=== PATIENT | male | born 1990 | race Caucasian/White ===

== ENCOUNTER 2016-12-29 09:22 | Emergency (ER) | payer MEDICAID, OTHER ==
[~2016-12-29] VITALS: Ht 172.7 cm; Wt 53.0 kg
[2016-12-29 09:23] VITALS: BP 128/75; PULSE 88; RESP 17; TEMP 98.4; O2SAT 99
[2016-12-29] MEDS ORDERED: ALBUAER3 INH (09:56)
[2016-12-29] MEDS ORDERED: PRED20 PO (09:56)
--- NOTE | 2016-12-29 09:57 | PD ---
HPI Chief Complaint: Cold / Flu Symptoms Time Seen by Provider: 09:31 Travel History International Travel<30 days: No Contact w/Intl Traveler<30days: No History of Present Illness HPI 26-year-old male well-nourished well-developed. The patient's had a runny nose cough fatigue hot and cold spells for 3 weeks. He is tried Sudafed which has not helped. Influenza study is negative. He occasionally has shortness of breath. He is reduced his smoking and a half a pack of cigarettes per day. He has no chest pain. He denies history of environmental allergies. Severity moderate. PFSH Past Medical History Cancer: No Diabetes: No Diminished Hearing: No Gastrointestinal Disorders: Yes (R HERNIA SURGERY ) Glaucoma: No Hepatitis: No Hypertension: No Neurologic: Yes (LEA JUNGE SYNDROME, SLEEP DISORDER, CLOSED HEAD INJURY) Immunizations Current: Yes Thyroid Disease: No ?: Not Past Surgical History Abdominal Surgery: Yes (RIGHT INGUINAL HERNIA REPAIR) Cardiac Surgery: No Ear Surgery: No Endocrine Surgery: No Eye Surgery: No Gynecologic Surgery: No Oral Surgery: No Pacemaker: No Thoracic Surgery: No Other Surgery: Yes (RIGHT HAND) Social History Alcohol Use: No Tobacco Use: Yes (1 PPD) Substance Use: No Allergies-Medications (Allergen,Severity, Reaction): Coded Allergies: Phenergan (Verified Allergy, Severe, "couldn't wake him up at urgent care, coma", 12/29/16) Reported Meds & Prescriptions Reported Meds & Active Scripts Active Claritin (Loratadine) 10 Mg Cap 10 Mg PO DAILY 21 Days [place] Nasal Homer (Sodium Chloride) 0.65% Homer 2 Homer EACH NARE DIRECTED PRN Azithromycin 250 Mg Tab 250 Mg PO DIRECTED Take 2 tabs (500 mg) on day 1 then 1 tab daily x 4 days. Prednisone 20 Mg Tab 40 Mg PO DAILY 4 Days Take 40 mg (2 tablets) daily for 5 days Proair Hfa 8.5 GM Inh (Albuterol Sulfate) 90 Mcg/Act Aer 2 Puff INH Q6H PRN 108 mcg/actuation Reported Buspirone (Buspirone HCl) Unknown Strength Tab Unknown Dose PO BID Review of Systems Except as stated in HPI: all other systems reviewed are Neg Respiratory: Positive: Cough, No: Wheezing Physical Exam Narrative GENERAL: 26-year-old male well-nourished well-developed SKIN: Focused skin assessment warm/dry. HEAD: Atraumatic. Normocephalic. EYES: Pupils equal and round. No scleral icterus. No injection or drainage. ENT: No nasal bleeding or discharge. Mucous membranes pink and moist. Trace erythema posterior oropharynx. No tonsillar hypertrophy or asymmetry. NECK: Trachea midline. No JVD. CARDIOVASCULAR: Regular rate and rhythm. No murmur appreciated. RESPIRATORY: No accessory muscle use. Clear to auscultation. Breath sounds equal bilaterally. GASTROINTESTINAL: Abdomen soft, non-tender, nondistended. Hepatic and splenic margins not palpable. MUSCULOSKELETAL: No obvious deformities. No clubbing. No cyanosis. No edema. NEUROLOGICAL: Awake and alert. No obvious cranial nerve deficits. Motor grossly within normal limits. Normal speech. PSYCHIATRIC: Appropriate mood and affect; insight and judgment normal. Data Data Last Documented VS Vital Signs Date Time Temp Pulse Resp B/P Pulse Ox O2 Delivery O2 Flow Rate FiO2 12/29/16 11:20 77 16 128/70 12/29/16 10:30 99 Room Air 12/29/16 09:23 98.4 Vital signs reviewed Orders Complete Blood Count With Diff (12/29/16 09:46) Basic Metabolic Panel (Bmp) (12/29/16 09:46) Iv Access Insert/Monitor (12/29/16 09:46) Ecg Monitoring (12/29/16 09:46) Oximetry (12/29/16 09:46) Oxygen Administration (12/29/16 09:46) Chest, Pa & Lat (12/29/16 09:46) Sodium Chloride 0.9% Flush (Ns Flush) (12/29/16 10:00) Albuterol Neb (Albuterol Neb) (12/29/16 10:00) Monoscreen (12/29/16 09:46) Labs Laboratory Tests Test 12/29/16 10:15 White Blood Count 10.3 TH/MM3 Red Blood Count 5.48 MIL/MM3 Hemoglobin 16.1 GM/DL Hematocrit 47.5 % Mean Corpuscular Volume 86.6 FL Mean Corpuscular Hemoglobin 29.4 PG Mean Corpuscular Hemoglobin 33.9 % Concent Red Cell Distribution Width 12.3 % Platelet Count 301 TH/MM3 Mean Platelet Volume 8.2 FL Neutrophils (%) (Auto) 70.1 % Lymphocytes (%) (Auto) 22.1 % Monocytes (%) (Auto) 6.0 % Eosinophils (%) (Auto) 0.9 % Basophils (%) (Auto) 0.9 % Neutrophils # (Auto) 7.2 TH/MM3 Lymphocytes # (Auto) 2.3 TH/MM3 Monocytes # (Auto) 0.6 TH/MM3 Eosinophils # (Auto) 0.1 TH/MM3 Basophils # (Auto) 0.1 TH/MM3 CBC Comment DIFF FINAL Differential Comment Sodium Level 144 MEQ/L Potassium Level 4.3 MEQ/L Chloride Level 104 MEQ/L Carbon Dioxide Level 28.5 MEQ/L Anion Gap 12 MEQ/L Blood Urea Nitrogen 13 MG/DL Creatinine 0.99 MG/DL Estimat Glomerular Filtration 93 ML/MIN Rate Random Glucose 94 MG/DL Calcium Level 9.4 MG/DL Monoscreen NEG MDM Medical Decision Making Medical Screen Exam Complete: Yes Emergency Medical Condition: Yes Medical Record Reviewed: Yes Differential Diagnosis Pneumonia, postnasal drip, bronchitis, cough variant asthma, mononucleosis Narrative Course CBC & BMP Diagram 12/29/16 10:15 Chest x-ray shows a lingular pneumonia Scripts as below The patient is resting comfortably and feels better, is alert and in no distress. The patients results and examination findings were discussed. The repeat examination is unremarkable and benign. The history, exam, diagnostic testing, and current condition do not suggest any significant pathology to warrant further testing, continued ED treatment, admission, or surgical evaluation at this point. The vital signs have been stable. The patient does not have uncontrollable pain, intractable vomiting, or other significant symptoms. The patient's condition is stable and appropriate for discharge. The patient will pursue further outpatient evaluation with a primary care physician or other designated or consulting physician as indicated in the discharge instructions. The patient expressed understanding and was agreeable with this plan. Diagnosis Primary Impression: Cough Additional Impression: Rhinorrhea Referrals: Joseph Ye MD 2 days Additional Instructions: You have a choice when it comes to health care, and we are glad that you chose [facility]. Hopefully, we have met your expectations on today's visit. You are welcome to return to [facility] at any time, as we are committed to meeting the health care needs of our community. Med/Other Pt SpecificInfo: Prescription(s) given Scripts Loratadine (Claritin)10 Mg Cap10 Mg PO DAILY 21 Days Ref 0 Prov:Gonzalo Acuña MD 12/29/16 Saline Nasal ([place] Nasal Homer)0.65% Spray2 Homer EACH NARE DIRECTED PRN ( NASAL CONGESTION) #1 BOTTLE Ref 0 Prov:Gonzalo Acuña MD 12/29/16 Azithromycin 250 Mg Eth159 Mg PO DIRECTED #6 TAB Ref 0 Take 2 tabs (500 mg) on day 1 then 1 tab daily x 4 days. Prov:Gonzalo Acuña MD 12/29/16 Prednisone 20 Mg Tab40 Mg PO DAILY 4 Days Ref 0 Take 40 mg (2 tablets) daily for 5 days Prov:Gonzalo Acuña MD 12/29/16 Albuterol 8.5 GM Inh (Proair Hfa 8.5 GM Inh)90 Mcg/Act Aer2 Puff INH Q6H PRN ( COUGH) #1 INHALER Ref 0 108 mcg/actuation Prov:Gonzalo Acuña MD 12/29/16 Disposition: 01 DISCHARGE HOME Condition: Stable Gonzalo Acuña MD Dec 29, 2016 09:57
[2016-12-29] MEDS ORDERED: RESP: ALBUTEROL 2.5 MG/3 ML NEB (SCH) INH ONE (10:00)
[2016-12-29] MEDS ORDERED: SODIUM CHLORIDE 0.9% FLUSH 10 ML FLUSH IVF PRN (10:00)
[2016-12-29 10:03] VITALS: RESP 16; O2SAT 99
[2016-12-29] MEDS ORDERED: BUSP5TAB PO (10:06)
[2016-12-29 10:30] VITALS: BP 128/73; PULSE 75; RESP 16; O2SAT 99
[2016-12-29 10:34] LABS: AUTOMATED NEUTROPHIL # 7.2 TH/MM3 (1.8-7.7); BASOPHIL # 0.1 TH/MM3 (0-0.2); BASOPHIL % 0.9 % (0.0-2.0); EOSINOPHIL # 0.1 TH/MM3 (0-0.4); EOSINOPHIL % 0.9 % (0.0-4.0); HEMATOCRIT 47.5 % (39.0-51.0); HEMO FLAGS DIFF FINAL; LYMPH % 22.1 % (9.0-44.0); LYMPHOCYTE # 2.3 TH/MM3 (1.0-4.8); MEAN CELL VOLUME 86.6 FL (80.0-100.0); MEAN CORPUSCULAR HEMOGLOBIN 29.4 PG (27.0-34.0); MEAN CORPUSCULAR HGB CONC 33.9 % (32.0-36.0); NEUT % 70.1 % (16.0-70.0); PLATELET COUNT 301 TH/MM3 (150-450); RED BLOOD COUNT 5.48 MIL/MM3 (4.50-5.90); RED CELL DISTRIBUTION WIDTH 12.3 % (11.6-17.2); WHITE BLOOD COUNT 10.3 TH/MM3 (4.0-11.0)
[2016-12-29 10:35] LABS: POTASSIUM 4.3 MEQ/L (3.5-5.1)
[2016-12-29 10:38] LABS: BICARBONATE 28.5 MEQ/L (21.0-32.0)
--- NOTE | 2016-12-29 10:38 | RADHPO ---
EXAM DATE/TIME: 12/29/2016 09:59 [facility] COMPARISON: CHEST PA & LAT, May 06, 2013, 11:12. INDICATIONS : Productive cough and congestion for three weeks. MEDICAL HISTORY : None. SURGICAL HISTORY : None. ENCOUNTER: Initial ACUITY: 3 weeks PAIN SCORE: 0/10 LOCATION: Bilateral chest FINDINGS: PA and lateral views of the chest. Minimal opacity in the anterior mid lung on the lateral view indic ating mild atelectasis versus consolidation in the right middle lobe or lingula. No correlate on the frontal view. The lungs are otherwise clear. Cardiomediastinal silhouette within normal limits. No ev idence of pleural effusion or pneumothorax. CONCLUSION: Mild consolidation versus atelectasis in the right middle lobe or lingula. Ayo Zapata MD on December 29, 2016 at 10:35 Board Certified Radiologist. This report was verified electronically.
[2016-12-29] MEDS ORDERED: AZIT250T3 PO (10:58)
[2016-12-29] MEDS ORDERED: OCEA0.653 EACH NARE (10:58)
[2016-12-29] MEDS ORDERED: CLAR10CA3 PO (10:59)
[2016-12-29 11:20] VITALS: BP 128/70
== END 2016-12-29 11:21 | disposition home or self-care (01) ==
LOC: PHED 09:22
DX: R05 Cough (principal); R09.89 Other specified symptoms and signs involving the circulatory and respiratory systems; F17.210 Nicotine dependence, cigarettes, uncomplicated
CPT/HCPCS: 71020; 80048; 85025; 86308; 94664; 99283; J7613

== ENCOUNTER 2017-07-29 09:17 | Emergency (ER) | payer OTHER ==
[~2017-07-29] VITALS: Ht 170.2 cm; Wt 59.5 kg
[~2017-07-29 09:17] MED LIST: ALBUAER3 INH; AZIT250T3 PO; BUSP5TAB PO; CLAR10CA3 PO; OCEA0.653 EACH NARE; PRED20 PO
[2017-07-29 09:21] VITALS: BP 140/70; PULSE 76; RESP 16; TEMP 98.3; O2SAT 99
[2017-07-29] MEDS ORDERED: TYLETAB34 PO (09:31)
--- NOTE | 2017-07-29 09:35 | PD ---
HPI Chief Complaint: Chest Pain Time Seen by Provider: 09:22 Travel History International Travel<30 days: No Contact w/Intl Traveler<30days: No Traveled to known affect area: No History of Present Illness HPI This patient complains of chest pain. Duration 2 days. Location is left upper chest. Severity is moderate. Worse with pressing on it or twisting his torso or moving his chest wall with a deep breath. He denies productive cough or fever or injury. Comes are nonexertional. No alleviating factors. PFSH Past Medical History Anxiety: Yes Depression: Yes Cancer: No Cardiovascular Problems: No Diabetes: No Diminished Hearing: No Gastrointestinal Disorders: Yes (R HERNIA SURGERY ) Glaucoma: No Hepatitis: No Hypertension: No Medical other: No Neurologic: Yes (LEA JUNGE SYNDROME, SLEEP DISORDER, CLOSED HEAD INJURY) Respiratory: No Immunizations Current: Yes Thyroid Disease: No Tetanus Vaccination: > 5 Years Influenza Vaccination: Yes Past Surgical History Abdominal Surgery: Yes (RIGHT INGUINAL HERNIA REPAIR) Cardiac Surgery: No Ear Surgery: No Endocrine Surgery: No Eye Surgery: No Genitourinary Surgery: Yes (SCROTAL LESION REMOVAL 09/2009) Gynecologic Surgery: No Oral Surgery: No Pacemaker: No Thoracic Surgery: No Other Surgery: Yes (RIGHT HAND, HYDROSELE) Social History Alcohol Use: No (denies) Tobacco Use: Yes (09/02-1 ppd) Substance Use: Yes (hx of "pot use") Allergies-Medications (Allergen,Severity, Reaction): Coded Allergies: promethazine (Unverified Allergy, Severe, "couldn't wake him up at urgent care,[facility]", 07/29/17) Reported Meds & Prescriptions Reported Meds & Active Scripts Active Tylenol-Codeine #3 (Acetaminophen-Codeine) 300-30 mg Tab 1 Tab PO Q6HR PRN Review of Systems General / Constitutional: No: Fever Eyes: No: Visual changes HENT: No: Headaches Cardiovascular: Positive: Chest Pain or Discomfort Respiratory: No: Shortness of Breath Gastrointestinal: No: Abdominal Pain Genitourinary: No: Dysuria Musculoskeletal: No: Pain Skin: No Rash Neurologic: No: Weakness Psychiatric: No: Depression Endocrine: No: Polydipsia Hematologic/Lymphatic: No: Easy Bruising Physical Exam Narrative GENERAL: Well-nourished, well-developed patient in no apparent distress. SKIN: Focused skin assessment reveals no rash and nodules. Skin is Warm and dry. HEAD: Atraumatic. Normocephalic. EYES: Pupils equal and round. No scleral icterus. No injection or drainage. ENT: No nasal bleeding or discharge. Mucous membranes pink and moist. NECK: Trachea midline. No JVD. CARDIOVASCULAR: Regular rate and rhythm. No murmur appreciated. RESPIRATORY: No accessory muscle use. Clear to auscultation. Breath sounds equal bilaterally. GASTROINTESTINAL: Abdomen soft, non-tender, nondistended. Hepatic and splenic margins not palpable. MUSCULOSKELETAL: No obvious deformities. No clubbing. No cyanosis. No edema. Has readily reproducible chest wall tenderness in the left upper chest. NEUROLOGICAL: Awake and alert. No obvious cranial nerve deficits. Motor grossly within normal limits. Normal speech. PSYCHIATRIC: Appropriate mood and affect; insight and judgment normal. Data Data Last Documented VS Vital Signs Date Time Temp Pulse Resp B/P (MAP) Pulse Ox O2 Delivery O2 Flow Rate FiO2 07/29/17 09:25 (93) 07/29/17 09:21 Room Air 07/29/17 09:21 98.3 76 16 99 Orders Orders Chest, Single Ap (07/29/17 ) Electrocardiogram (07/29/17 ) MDM Medical Decision Making Medical Screen Exam Complete: Yes Emergency Medical Condition: Yes Medical Record Reviewed: Yes Differential Diagnosis Differential diagnosis includes HI, angina, pericarditis, pleurisy, GERD, costochondritis Narrative Course I have reviewed the patient's electronic medical record. Patient was seen here last year for respiratory infection. Fairly frequent visitor over the years for minor complaints I reviewed his EKG which is normal I reviewed his chest x-ray which is normal Patient has clear-cut readily reproducible left upper chest wall tenderness. This is clearly musculoskeletal. Will not require further cardiac evaluation.The patient was advised to follow up with their physician and return if they worsen.The patient was warned about potential sedation for the medications they will receive on prescription. Diagnosis Primary Impression: Musculoskeletal chest pain Additional Instructions: The patient was advised to follow up with their physician and return if they worsen. The patient was warned about potential sedation for the medications they will receive on prescription. Med/Other Pt SpecificInfo: Prescription(s) given Scripts Acetaminophen-Codeine (Tylenol-Codeine #3) 300-30 mg Tab 1 TAB PO Q6HR Y for PAIN, #20 TAB 0 Refills Prov: Alexis Rosas MD 07/29/17 Disposition: 01 DISCHARGE HOME Condition: Stable Alexis Rosas MD Jul 29, 2017 09:35
--- NOTE | 2017-07-29 09:56 | RADRPT ---
EXAM DATE/TIME: 07/29/2017 09:45 [facility] COMPARISON: CHEST PA & LAT, December 29, 2016, 9:59. INDICATIONS : Left side chest pain. MEDICAL HISTORY : None. SURGICAL HISTORY : None. ENCOUNTER: Initial ACUITY: 3 days PAIN SCORE: 10/10 LOCATION: Left chest FINDINGS: A single view of the chest demonstrates the lungs to be symmetrically aerated without evidence of mas s, infiltrate or effusion. The cardiomediastinal contours are unremarkable. Osseous structures are intact. CONCLUSION: No acute disease. Jarek Burgos MD on July 29, 2017 at 9:53 Board Certified Radiologist. This report was verified electronically.
--- NOTE | 2017-07-29 15:16 | EKG ---
Date Performed: 07/29/2017 Time Performed: 09:18:36 PTAGE: 27 years EKG: Sinus rhythm NORMAL ECG NO PREVIOUS TRACING DOCTOR: Saray Jauregui Interpretating Date/Time 07/29/2017 15:13:33
== END 2017-07-29 10:21 | disposition home or self-care (01) ==
LOC: PHED 09:17
DX: R07.89 Other chest pain (principal); F32.9 Major depressive disorder, single episode, unspecified; F17.210 Nicotine dependence, cigarettes, uncomplicated
CPT/HCPCS: 71010; 93005; 99284

== ENCOUNTER 2017-09-02 17:12 | Emergency (ER) | payer OTHER ==
[~2017-09-02] VITALS: Ht 170.2 cm; Wt 61.0 kg
[~2017-09-02 17:12] MED LIST changes: -ALBUAER3 INH; -AZIT250T3 PO; -BUSP5TAB PO; -CLAR10CA3 PO; -OCEA0.653 EACH NARE; -PRED20 PO; +TYLETAB34 PO
[2017-09-02 17:31] VITALS: BP 118/69; PULSE 111; RESP 16; TEMP 102.5; O2SAT 98
[2017-09-02] MEDS ORDERED: ACETAMINOPHEN 325 MG TAB PO ONE (18:15)
--- NOTE | 2017-09-02 18:41 | PD ---
HPI . Cold/flu symptoms Chief Complaint: Cold / Flu Symptoms Time Seen by Provider: 18:03 Travel History International Travel<30 days: No Contact w/Intl Traveler<30days: No Traveled to known affect area: No History of Present Illness HPI 27 yo M who comes to ER complaining of acute onset sore throat, headache, weakness and chills that started this am. He slept from 10am until 4pm after which he presented here due to continued symptoms. He was unable to take his temperature at home. He reports a coworker has been out of work for the last few days after being diagnosed with strep throat. No relieving or exacerbating factors. He rates his myalgias at 10/10. PFSH Past Medical History Anxiety: Yes Depression: Yes Cancer: No Cardiovascular Problems: No Diabetes: No Diminished Hearing: No Gastrointestinal Disorders: Yes (R HERNIA SURGERY ) Glaucoma: No Hepatitis: No Hypertension: No Neurologic: Yes (LEA JUNGE SYNDROME, SLEEP DISORDER, CLOSED HEAD INJURY) Respiratory: No Immunizations Current: Yes Thyroid Disease: No ?: Not Past Surgical History Abdominal Surgery: Yes (RIGHT INGUINAL HERNIA REPAIR) Cardiac Surgery: No Ear Surgery: No Endocrine Surgery: No Eye Surgery: No Genitourinary Surgery: Yes (SCROTAL LESION REMOVAL 09/2009) Gynecologic Surgery: No Oral Surgery: No Pacemaker: No Thoracic Surgery: No Other Surgery: Yes (RIGHT HAND, HYDROSELE) Social History Alcohol Use: Yes (occ) Tobacco Use: Yes (09/02- ppd) Substance Use: Yes (hx of "pot use") Allergies-Medications (Allergen,Severity, Reaction): Coded Allergies: promethazine (Unverified Allergy, Severe, "couldn't wake him up at urgent care[facility]", 09/02/17) Reported Meds & Prescriptions Reported Meds & Active Scripts Active Ibuprofen 800 Mg Tab 800 Mg PO Q8H PRN Amoxicillin 875 Mg Tab 875 Mg PO BID 7 Days Tylenol-Codeine #3 (Acetaminophen-Codeine) 300-30 mg Tab 1 Tab PO Q6HR PRN Review of Systems Except as stated in HPI: all other systems reviewed are Neg General / Constitutional: Positive: Fever, Chills HENT: Positive: Headaches, Sore Throat, Congestion Physical Exam Narrative General: fatigued-looking young male curled up and shivering under sheet HEENT: atraumatic, ANGÉLICA, tympanic membranes without effusion, erythematous posterior throat Lungs: Clear to auscultation Heart: Sinus tach. Skin: no signs of bruising or discoloration Musculoskeletal: 5/5 strength in all extremities Neuro: nonfocal Psych: normal mood and affect Data Data Last Documented VS Vital Signs Date Time Temp Pulse Resp B/P (MAP) Pulse Ox O2 Delivery O2 Flow Rate FiO2 09/02/17 17:31 102.5 111 16 118/69 (85) 98 Orders Orders Acetaminophen (Tylenol) (09/02/17 18:15) Influenzae A/B Antigen (09/02/17 18:03) Group A Rapid Strep Screen (09/02/17 18:19) Strep Culture (Group A) (09/02/17 18:33) Ed Discharge Order (09/02/17 18:48) MDM Medical Decision Making Medical Screen Exam Complete: Yes Emergency Medical Condition: Yes Differential Diagnosis Differential diagnosis of sore throat includes but is not limited to viral illness, strep throat, mononucleosis, retropharyngeal abscess, peritonsillar abscess Narrative Course Patient presents with sore throat and fever. He has had a positive exposure to strep throat. He will be treated with amoxicillin. Flu screen is negative. Strep screen is negative. Diagnosis Primary Impression: Pharyngitis Qualified Codes: J02.9 - Acute pharyngitis, unspecified Patient Instructions: General Instructions, Pharyngitis (DC) Med/Other Pt SpecificInfo: Prescription(s) given Scripts Ibuprofen (Ibuprofen) 800 Mg Tab 800 MG PO Q8H Y for Pain/Inflammation, #60 TAB 0 Refills Prov: Sofie Barkley MD 09/02/17 Amoxicillin (Amoxicillin) 875 Mg Tab 875 MG PO BID for Infection for 7 Days, #14 TAB 0 Refills Prov: Sofie Barkley MD 09/02/17 Disposition: 01 DISCHARGE HOME Condition: Stable Sofie Barkley MD Sep 02, 2017 18:41
[2017-09-02] MEDS ORDERED: IBUP1TAB7 PO (18:47)
[2017-09-02] MEDS ORDERED: AMOX875T PO (18:47)
[2017-09-02 18:57] VITALS: BP 140/74; TEMP 100.9
== END 2017-09-02 19:08 | disposition home or self-care (01) ==
LOC: PHED 17:12
DX: J02.9 Acute pharyngitis, unspecified (principal); M79.1 Myalgia; F17.210 Nicotine dependence, cigarettes, uncomplicated
CPT/HCPCS: 87081; 87804; 87880; 99283

== ENCOUNTER 2017-09-04 08:01 | Emergency (ER) | payer OTHER ==
[~2017-09-04] VITALS: Ht 170.2 cm; Wt 59.0 kg
[~2017-09-04 08:01] MED LIST changes: +AMOX875T PO; +IBUP1TAB7 PO
[2017-09-04 08:05] VITALS: BP 134/63; PULSE 97; RESP 16; TEMP 98.9; O2SAT 99
[2017-09-04 08:10] VITALS: BP 134/63; PULSE 97; RESP 16; TEMP 98.9; O2SAT 99
--- NOTE | 2017-09-04 08:23 | PD ---
HPI Chief Complaint: ENT Complaint Time Seen by Provider: 08:07 Travel History International Travel<30 days: No Contact w/Intl Traveler<30days: No Traveled to known affect area: No History of Present Illness HPI This 27-year-old male is complaining of sore throat. He was here 2 days ago with that complaint. He had been exposed to strep at work. He had a negative test for influenza and a negative strep screen. Apparently the strep culture however was growing question of some beta colonies. The patient was started on amoxicillin 2 days ago area and he says the pain has not improved in fact seems to be worse. He has trouble swallowing. Day he noted that he had white spots in the back of his throat. PFSH Past Medical History Anxiety: Yes Depression: Yes Cancer: No Cardiovascular Problems: No Diabetes: No Diminished Hearing: No Gastrointestinal Disorders: Yes (R HERNIA SURGERY ) Glaucoma: No Hepatitis: No Hypertension: No Neurologic: Yes (LEA JUNGE SYNDROME, SLEEP DISORDER, CLOSED HEAD INJURY) Respiratory: No Immunizations Current: Yes Thyroid Disease: No Past Surgical History Abdominal Surgery: Yes (RIGHT INGUINAL HERNIA REPAIR) Cardiac Surgery: No Ear Surgery: No Endocrine Surgery: No Eye Surgery: No Genitourinary Surgery: Yes (SCROTAL LESION REMOVAL 09/2009) Gynecologic Surgery: No Oral Surgery: No Pacemaker: No Thoracic Surgery: No Other Surgery: Yes (RIGHT HAND, HYDROSELE) Social History Alcohol Use: Yes (occ) Tobacco Use: Yes (09/02- ppd) Substance Use: Yes (hx of "pot use") Allergies-Medications (Allergen,Severity, Reaction): Coded Allergies: promethazine (Unverified Allergy, Severe, "couldn't wake him up at urgent care,[facility]", 09/04/17) Reported Meds & Prescriptions Reported Meds & Active Scripts Active Ibuprofen 800 Mg Tab 800 Mg PO Q8H PRN Amoxicillin 875 Mg Tab 875 Mg PO BID 7 Days Tylenol-Codeine #3 (Acetaminophen-Codeine) 300-30 mg Tab 1 Tab PO Q6HR PRN Review of Systems General / Constitutional: Positive: Fever Eyes: No: Blurred Vision, Photophobia HENT: Positive: Sore Throat Cardiovascular: No: Chest Pain or Discomfort, Palpitations Respiratory: No: Cough, Shortness of Breath Gastrointestinal: No: Vomiting, Diarrhea Genitourinary: No: Urgency, Frequency Musculoskeletal: No: Myalgias, Arthralgias Skin: No Rash, No Itching Endocrine: No: Heat Intolerance, Cold Intolerance Hematologic/Lymphatic: No: Easy Bruising Physical Exam Narrative GENERAL: A little male SKIN: Focused skin assessment warm/dry. HEAD: Atraumatic. Normocephalic. EYES: Pupils equal and round. No scleral icterus. No injection or drainage. ENT: No nasal bleeding or discharge. Mucous membranes pink and moist. No stridor pharynx shows the tonsils to be erythematous. There is white exudate on both tonsils. There are slightly enlarged NECK: Trachea midline. No JVD. Bilateral anterior cervical adenopathy CARDIOVASCULAR: Regular rate and rhythm. No murmur appreciated. RESPIRATORY: No accessory muscle use. Clear to auscultation. Breath sounds equal bilaterally. GASTROINTESTINAL: Abdomen soft, non-tender, nondistended. Hepatic and splenic margins not palpable. MUSCULOSKELETAL: No obvious deformities. No clubbing. No cyanosis. No edema. NEUROLOGICAL: Awake and alert. No obvious cranial nerve deficits. Motor grossly within normal limits. Normal speech. PSYCHIATRIC: Appropriate mood and affect; insight and judgment normal. Data Data Last Documented VS Vital Signs Date Time Temp Pulse Resp B/P (MAP) Pulse Ox O2 Delivery O2 Flow Rate FiO2 09/04/17 08:05 98.9 97 16 134/63 (86) 99 Orders Orders Monoscreen (09/04/17 08:16) Dexamethasone (Decadron) (09/04/17 08:30) MDM Medical Decision Making Medical Screen Exam Complete: Yes Emergency Medical Condition: Yes Medical Record Reviewed: Yes Differential Diagnosis Differential includes strep throat, mononucleosis, viral illness Narrative Course I think the patient's symptoms were improved with a single dose of Decadron. The culture is somewhat equivocal and suggested that he may have beta strep. I have told him to continue the amoxicillin. We will order a [place] screen but the patient will be released as there will not be any change in medication based on this. Diagnosis Primary Impression: Pharyngitis Qualified Codes: J02.9 - Acute pharyngitis, unspecified Additional Instructions: Continue amoxicillin and ibuprofen, force fluids Disposition: DISCHARGE HOME Condition: Stable Andreas Holley MD Sep 04, 2017 08:23
[2017-09-04] MEDS ORDERED: DEXAMETHASONE 4 MG TAB PO ONE (08:30)
[2017-09-04] MEDS ORDERED: DEXAMETHASONE 6 MG TAB PO ONE (08:30)
[2017-09-04 09:29] LABS: MONOSCREEN NEG (NEG)
== END 2017-09-04 08:40 ==
LOC: PHED 08:01
DX: J02.9 Acute pharyngitis, unspecified (principal); F41.9 Anxiety disorder, unspecified; F32.9 Major depressive disorder, single episode, unspecified; F17.200 Nicotine dependence, unspecified, uncomplicated
CPT/HCPCS: 86308; 99283; J8540

== ENCOUNTER 2017-11-20 11:12 | Emergency (ER) | payer OTHER ==
[~2017-11-20] VITALS: Ht 170.2 cm; Wt 58.3 kg
[2017-11-20 11:21] VITALS: BP 152/71; PULSE 82; RESP 16; TEMP 98.2; O2SAT 99
--- NOTE | 2017-11-20 12:04 | PD ---
HPI Chief Complaint: ENT Complaint Time Seen by Provider: 11:54 Travel History International Travel<30 days: No Contact w/Intl Traveler<30days: No Traveled to known affect area: No History of Present Illness HPI 27-year-old male presents to the emergency department was concerned that he may have throat cancer secondary to a sore throat that he has had for the past 2 weeks. His mom was diagnosed with throat cancer and she told him these were symptoms that she had when she was diagnosed. He is requesting "blood work and an x-ray or something." He did see his primary care provider, Dr. Hale, today and was given a prescription for amoxicillin. He was tested for rapid strep and influenza in the office which were both negative, per the patient. He has not started his amoxicillin, as he just got the prescription today and turned it into the pharmacy before coming to the ER. He denies fever, vomiting. Denies lump in throat, difficulty swallowing, unusual drooling. Reports painful swallowing that he says is getting worse. Reports nasal congestion. Denies ear pain, cough. Has not taken any medications or trying treatments to alleviate his symptoms. No known relieving factors. Aggravated with swallowing. Reports pain 8/10. Describes it as a burning and prickly sensation. Reports tobacco use. Primary care provider is Dr. Hale. Denies significant past medical history. Allergies to Phenergan. Has no other medical complaints. No other modifying factors or associated signs and symptoms. PFSH Past Medical History Anxiety: Yes Depression: Yes Cancer: No Cardiovascular Problems: No Diabetes: No Diminished Hearing: No Gastrointestinal Disorders: Yes (R HERNIA SURGERY ) Glaucoma: No Hepatitis: No Hypertension: No Neurologic: Yes (LEA JUNGE SYNDROME, SLEEP DISORDER, CLOSED HEAD INJURY) Respiratory: No Immunizations Current: Yes Thyroid Disease: No ?: Not Past Surgical History Abdominal Surgery: Yes (RIGHT INGUINAL HERNIA REPAIR) Cardiac Surgery: No Ear Surgery: No Endocrine Surgery: No Eye Surgery: No Genitourinary Surgery: Yes (SCROTAL LESION REMOVAL 09/2009) Gynecologic Surgery: No Oral Surgery: No Pacemaker: No Thoracic Surgery: No Other Surgery: Yes (RIGHT HAND, HYDROSELE) Social History Alcohol Use: Yes (occ) Tobacco Use: Yes (1/2-1 ppd) Substance Use: Yes (hx of "pot use") Allergies-Medications (Allergen,Severity, Reaction): Coded Allergies: promethazine (Unverified Allergy, Severe, "couldn't wake him up at [facility]", 11/20/17) Reported Meds & Prescriptions Reported Meds & Active Scripts Active No Active Prescriptions or Reported Medications Review of Systems Except as stated in HPI: all other systems reviewed are Neg Physical Exam Narrative GENERAL: Well-nourished, well-developed male patient, in no acute distress; afebrile, nontoxic-appearing SKIN: Warm and dry. No rash. HEAD: Atraumatic. Normocephalic. EYES: Pupils equal and round at 3 mm with brisk reaction. No scleral icterus. No injection or drainage. PERRLA. ENT: Mucosa pink and dry. Oropharynx without erythema, exudate, or edema. No Uvular edema. No uvular, palatal, or tonsillar deviation. Airway patent. EARS: Bilateral pinnae and external canals appear within normal limits. Bilateral tympanic membranes without erythema, dullness or perforation.. NECK: Trachea midline. Anterior cervical lymphadenopathy and tenderness on palpation. CARDIOVASCULAR: Regular rate. RESPIRATORY: No accessory muscle use. GASTROINTESTINAL: Flat. MUSCULOSKELETAL: No obvious deformities. No clubbing. No cyanosis. No edema. NEUROLOGICAL: Awake and alert. Oriented 3. No obvious cranial nerve deficits. Motor grossly within normal limits. Normal speech. Moves all extremities. PSYCHIATRIC: Appropriate mood and affect; insight and judgment normal. Data Data Last Documented VS Vital Signs Date Time Temp Pulse Resp B/P (MAP) Pulse Ox O2 Delivery O2 Flow Rate FiO2 11/20/17 11:21 98.2 82 16 152/71 (98) 99 Orders Orders Ed Discharge Order (11/20/17 12:05) [facility] Medical Decision Making Medical Screen Exam Complete: Yes Emergency Medical Condition: Yes Medical Record Reviewed: Yes Differential Diagnosis Viral pharyngitis, strep pharyngitis, sore throat, less likely peritonsillar abscess Narrative Course 27-year-old male with concern that he has throat cancer and is requesting lab work and imaging. His mom was diagnosed with throat cancer and had similar symptoms that he is experiencing at this time. He has had a sore throat for 2 weeks. He is afebrile and nontoxic-appearing. He did see his primary care provider prior to coming to the ER and was tested for strep throat and influenza which were both negative, per the patient. He was given a prescription for amoxicillin which is currently at the pharmacy being filled. He denies lump in throat, unusual drooling, difficulty swallowing. No signs of peritonsillar abscess. I do not feel that lab work or imaging is necessary at this time and instructed patient he can follow-up outpatient with his primary care provider with continued concern of ruling out throat cancer. 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 I offered the patient pain medication and he declined. Instructed patient to follow up with primary care provider. Patient verbalizes understanding and agreement with treatment plan. Patient is medically cleared and stable for discharge. Discussed reasons to return to the emergency department. Patient agrees with treatment plan. The patients vital signs are stable and the patient is stable for outpatient follow-up and treatment. Patient discharged home, stable and in no acute distress. Diagnosis Primary Impression: Sore throat Referrals: Primary Care Physician Patient Instructions: General Instructions, Pharyngitis (ED) Additional Instructions: Take Antibiotics as prescribed and complete full course of antibiotics Throw away and change your toothbrush 24 hours after starting antibiotics Get plenty of sleep/rest Rest your voice Drink plenty of fluids to prevent dehydration Use warm saltwater gargles to soothe throat pain Use an air humidifier/turn off ceiling fans Use throat lozenges as needed for sore throat Use ibuprofen or acetaminophen as needed to relieve pain and fever Follow-up with your primary care provider within 2-4 days Return immediately to the emergency department with worsening of symptoms Med/Other Pt SpecificInfo: No Change to Meds, No Meds Exist/No RX given Scripts No Active Prescriptions or Reported Meds Disposition: 01 DISCHARGE HOME Condition: Stable Tasha Melo Nov 20, 2017 12:04
== END 2017-11-20 12:18 | disposition home or self-care (01) ==
LOC: PHEFT 11:12
DX: R07.0 Pain in throat (principal); R13.10 Dysphagia, unspecified; R09.81 Nasal congestion; F17.200 Nicotine dependence, unspecified, uncomplicated; Z87.19 Personal history of other diseases of the digestive system; Z86.69 Personal history of other diseases of the nervous system and sense organs; Z86.59 Personal history of other mental and behavioral disorders
CPT/HCPCS: 99282

== ENCOUNTER 2017-12-09 08:49 | Emergency (ER) | payer OTHER ==
[~2017-12-09] VITALS: Ht 167.6 cm; Wt 58.5 kg
[2017-12-09 08:55] VITALS: BP 143/67; PULSE 97; RESP 16; TEMP 98.9; O2SAT 100
[2017-12-09] MEDS ORDERED: MAGICADU2 SWISH-SWAL (09:28)
--- NOTE | 2017-12-09 09:32 | PD ---
HPI Chief Complaint: ENT Complaint Time Seen by Provider: 09:22 Travel History International Travel<30 days: No Contact w/Intl Traveler<30days: No Traveled to known affect area: No History of Present Illness HPI 27-year-old male presents emergency department for evaluation of a sore, burning throat and "pus pockets" in the back of his throat that is worsened over the last day. Patient states that he saw an limousine and hearse upholsterer 2 weeks ago who prescribed him penicillin but this did not help. Patient denies any issues swallowing or breathing but states that his right neck is rather tender to palpation. Says his right ear is also feels full and swollen. Patient denies fever, chills. Denies chronic medical issues medication use. Says his immunizations are up-to-date. Says he has taken the influenza vaccine for this year. PFSH Past Medical History Anxiety: Yes Depression: Yes Cancer: No Cardiovascular Problems: No Diabetes: No Diminished Hearing: No Gastrointestinal Disorders: Yes (R HERNIA SURGERY ) Glaucoma: No Hepatitis: No Hypertension: No Medical other: No Neurologic: Yes (LEA JUNGE SYNDROME, SLEEP DISORDER, CLOSED HEAD INJURY) Respiratory: No Immunizations Current: Yes Thyroid Disease: No Tetanus Vaccination: > 5 Years Influenza Vaccination: Yes Past Surgical History Abdominal Surgery: Yes (RIGHT INGUINAL HERNIA REPAIR) Cardiac Surgery: No Ear Surgery: No Endocrine Surgery: No Eye Surgery: No Genitourinary Surgery: Yes (SCROTAL LESION REMOVAL 09/2009) Gynecologic Surgery: No Oral Surgery: No Pacemaker: No Thoracic Surgery: No Other Surgery: Yes (RIGHT HAND, HYDROSELE) Social History Alcohol Use: Yes (occ) Tobacco Use: Yes (1 ppd) Substance Use: No Allergies-Medications (Allergen,Severity, Reaction): Coded Allergies: promethazine (Unverified Allergy, Severe, "couldn't wake him up at urgent [facility]", 12/09/17) Reported Meds & Prescriptions Reported Meds & Active Scripts Active Magic Mouthwash Adult Liq (Multi-Ingredient Mouthwash/Gargle) 120 Ml Susp 5 Ml SWISH-SWAL ACHS 10 Days Each 5mL contains: Nystatin 200,000units, Diphenhydramine 4.25mg, Viscous Lidocaine 10mg, Carson syrup 0.8 mL Review of Systems Except as stated in HPI: all other systems reviewed are Neg Physical Exam Narrative GENERAL: Well-nourished, well-developed patient. SKIN: Focused skin assessment warm/dry. HEAD: Normocephalic. EYES: No scleral icterus. No injection or drainage. NECK: Supple, trachea midline. No JVD. Right anterior lymphadenopathy, bilateral tympanic membranes pearly sandy without bulging or erythema, right greater than left posterior pharynx with white patches without tonsillar hypertrophy or exudate. CARDIOVASCULAR: Regular rate and rhythm without murmurs, gallops, or rubs. RESPIRATORY: Breath sounds equal bilaterally. No accessory muscle use. GASTROINTESTINAL: Abdomen soft, non-tender, nondistended. MUSCULOSKELETAL: No cyanosis, or edema. BACK: Nontender without obvious deformity. No CVA tenderness. Data Data Last Documented VS Vital Signs Date Time Temp Pulse Resp B/P (MAP) Pulse Ox O2 Delivery O2 Flow Rate FiO2 12/09/17 08:55 98.9 97 16 143/67 (92) 100 Orders Orders Ed Discharge Order (12/09/17 09:32) MDM Medical Decision Making Medical Screen Exam Complete: Yes Emergency Medical Condition: Yes Differential Diagnosis Strep pharyngitis, viral pharyngitis, oral candidiasis Narrative Course 27-year-old male presents emergency department for evaluation of a sore, burning throat and "pus pockets" in the back of his throat that is worsened over the last day. Patient states that he saw an limousine and hearse upholsterer 2 weeks ago who prescribed him penicillin but this did not help. Patient denies any issues swallowing or breathing but states that his right neck is rather tender to palpation. Says his right ear is also feels full and swollen. Patient denies fever, chills. Denies chronic medical issues medication use. Says his immunizations are up-to-date. Says he has taken the influenza vaccine for this year. Vital signs stable. Physical exam findings consistent with pharyngeal candidiasis. No tonsillar hypertrophy or exudate, no edema, no excessive drooling or saliva. Mild right anterior cervical lymphadenopathy Advised that patient follow-up with primary care physician and/or limousine and hearse upholsterer for further evaluation especially if this does not improve. Patient denies any chronic medical issues or medication use. Magic mouthwash swish and swallow. Return to emergency department worsening or persistent symptoms. Diagnosis Primary Impression: Oral pharyngeal candidiasis Referrals: [facility] Th[facility] Specialist Departure Forms: Tests/Procedures, Work Release Enter return to work date: Dec 10, 2017 Additional Instructions: Take all medications as prescribed. Follow-up with primary care physician or limousine and hearse upholsterer for further evaluation. Return to the emergency department worsening or persistent symptoms. Scripts Qkbvgdbt-Mixrmigdfmdsrnj-Zqigiagog Liq (Magic Mouthwash Adult Liq) 120 Ml Susp 5 ML SWISH-SWAL ACHS for Mouth sores for 10 Days, #120 ML 0 Refills Each 5mL contains: Nystatin 200,000units, Diphenhydramine 4.25mg, Viscous Lidocaine 10mg, Carson syrup 0.8 mL Prov: Andreas Holley MD 12/09/17 Disposition: 01 DISCHARGE HOME Condition: Stable Marleny Hong Dec 09, 2017 09:32
== END 2017-12-09 09:42 | disposition home or self-care (01) ==
LOC: PHEFT 08:49
DX: B37.89 Other sites of candidiasis (principal); F41.8 Other specified anxiety disorders; F17.210 Nicotine dependence, cigarettes, uncomplicated
CPT/HCPCS: 99283